=== PATIENT | male | born 1955 | race Asian ===

== ENCOUNTER 2023-07-29 15:39 | Inpatient (IN) | payer MEDICARE, OTHER ==
[~2023-07-29] VITALS: Ht 165.1 cm; Wt 70.8 kg
[2023-07-29 16:08] LABS: BASOPHILS # (AUTO) 0.1 K/UL (0.0-0.2); BASOPHILS % (AUTO) 0.8 % (0.0-2.0); EOSINOPHILS # (AUTO) 0.2 K/uL (0.0-0.7); EOSINOPHILS % (AUTO) 2.9 % (0.0-7.0); HEMATOCRIT 40.8 % (36.7-47.1); HEMOGLOBIN 13.7 g/dL (12.5-16.3); LYMPHOCYTES # (AUTO) 2.4 K/uL (0.8-4.8); LYMPHOCYTES % (AUTO) 34.2 % (20.5-51.5); MEAN CORPUSCULAR HEMOGLOBIN 30.9 uug (23.8-33.4); MEAN CORPUSCULAR HGB CONC 34 g/dL (32.5-36.3); MEAN CORPUSCULAR VOLUME 91.9 fL (73.0-96.2); MONOCYTES # (AUTO) 0.8 K/uL (0.1-1.30); MONOCYTES % (AUTO) 10.7 % (0.0-11.0); NEUTROPHILS # (AUTO) 3.6 K/uL (1.8-8.9); NEUTROPHILS % (AUTO) 51.4 % (38.5-71.5); PLATELET COUNT (AUTO) 214 K/uL (152-348); RED BLOOD CELL COUNT(AUTO) 4.44 MIL/uL (4.06-5.63); RED CELL DISTRIBUTION WIDTH 13.6 % (12.1-16.2); WHITE BLOOD COUNT (AUTO) 7.1 K/uL (3.6-10.2)
[2023-07-29 16:13] LABS: DIFFERENTIAL COMMENT 1
[2023-07-29 16:25] LABS: ETHANOL < 3 MG/DL (0-10)
[2023-07-29 16:26] LABS: CALCIUM 8.3 mg/dL (8.5-10.1); CARBON DIOXIDE 30 mmol/L (21-32); CHLORIDE 105 mmol/L (98-107); CREATININE 1.1 mg/dL (0.6-1.3); GLUCOSE 115 mg/dL (74-106); POTASSIUM 4.2 mmol/L (3.5-5.1); SODIUM SERUM 142 mmol/L (136-145); UREA NITROGEN, BLOOD 22 mg/dL (7-18)
[2023-07-29] MEDS ORDERED: BISA10SU61 RC (16:28)
[2023-07-29] MEDS ORDERED: ESCI5TAB PO (16:28)
[2023-07-29] MEDS ORDERED: ACET325T53 PO (16:28)
[2023-07-29 16:32] LABS: ALANINE AMINOTRANSFERASE 37 U/L (16-63); ALBUMIN 3.4 g/dL (3.4-5.0); ALKALINE PHOSPHATASE 84 U/L (50-136); ASPARTATE AMINOTRANSFERASE 22 U/L (15-37); BILIRUBIN,TOTAL 0.3 mg/dL (0.2-1.0); LIPASE 158 U/L (73-393)
[2023-07-29] MEDS ORDERED: LORAZEPAM 2 MG/1 ML VIAL ONE (16:42)
[2023-07-29] MEDS ORDERED: OLANZAPINE 10 MG VIAL IM ONE ×2 (16:43→16:45)
[2023-07-29] MEDS ORDERED: LORAZEPAM 2 MG/1 ML VIAL IM ONE (16:45)
[2023-07-29 16:50] LABS: ACETAMINOPHEN < 10.0 ug/mL (10-30)
[2023-07-29 16:53] LABS: *BILIRUBIN,URIN NEGATIVE (NEGATIVE); *BLOOD, URINE NEGATIVE (NEGATIVE); *CLARITY,URINE CLEAR (CLEAR); *COLOR,URINE YELLOW (YELLOW); *KETONES,URINE NEGATIVE (NEGATIVE); *PROTEIN,URINE NEGATIVE (NEGATIVE); *UROBILINOGEN,URINE 0.2 E.U./dl (NORMAL); LEUKOCYTE ESTERASE ,URINE NEGATIVE (NEGATIVE); NITRITE, URINE NEGATIVE (NEGATIVE); UGLUCOSE NEGATIVE (NEGATIVE)
[2023-07-29 16:58] LABS: *AMPHETAMINE, URINE NEGATIVE (NEGATIVE); *BARBITURATE, URINE NEGATIVE (NEGATIVE); *BENZODIAZEPINE, URINE NEGATIVE (NEGATIVE); *CANNABINOID, URINE NEGATIVE (NEGATIVE); *COCCAINE, URINE NEGATIVE (NEGATIVE); *OPIATE, URINE NEGATIVE (NEGATIVE); *PHENCYCLIDINE SCREEN,URINE NEGATIVE (NEGATIVE); FENTANYL, URINE NEGATIVE (NEGATIVE)
[2023-07-29 17:30] VITALS: BP 109/58; TEMP 97.9; O2SAT 97
[2023-07-29] MEDS ORDERED: MAGNESIUM HYDROXIDE 30 ML LIQUID UDC PO PRN (18:00)
[2023-07-29] MEDS ORDERED: MAG HYDROX/AL HYDROX/SIMETH 30 ML LIQUID UDC PO PRN (18:00)
[2023-07-29] MEDS ORDERED: BLOOD SUGAR DIAGNOSTIC 1 EACH STRIP VI ONE (18:00)
[2023-07-29] MEDS ORDERED: ACETAMINOPHEN 325 MG TABLET PO PRN (18:00)
[2023-07-29 20:00] VITALS: BP 105/72; TEMP 98; O2SAT 94
[2023-07-29] MEDS: CLONAZEPAM 0.5 MG TABLET PO PRN (20:52)
[2023-07-30 07:47] LABS: BASOPHILS % (AUTO) 0.5 % (0.0-2.0); EOSINOPHILS # (AUTO) 0.1 K/uL (0.0-0.7); EOSINOPHILS % (AUTO) 1.2 % (0.0-7.0); HEMATOCRIT 43.5 % (36.7-47.1); HEMOGLOBIN 14.6 g/dL (12.5-16.3); LYMPHOCYTES # (AUTO) 1.6 K/uL (0.8-4.8); MEAN CORPUSCULAR HGB CONC 34 g/dL (32.5-36.3); MEAN CORPUSCULAR VOLUME 92.5 fL (73.0-96.2); MONOCYTES # (AUTO) 0.7 K/uL (0.1-1.30); MONOCYTES % (AUTO) 8.3 % (0.0-11.0); NEUTROPHILS # (AUTO) 5.8 K/uL (1.8-8.9); PLATELET COUNT (AUTO) 219 K/uL (152-348); WHITE BLOOD COUNT (AUTO) 8.2 K/uL (3.6-10.2)
[2023-07-30 07:50] LABS: DIFFERENTIAL COMMENT 1
[2023-07-30 07:55] LABS: CALCIUM 8.3 mg/dL (8.5-10.1); POTASSIUM 4.2 mmol/L (3.5-5.1)
[2023-07-30 07:58] VITALS: BP 128/89; TEMP 98.4; O2SAT 98
[2023-07-30] MEDS: DIVALPROEX SPRINKLE 125 MG CAP.SPRINK PO SCH ×3 (09:30→20:25)
[2023-07-30] MEDS: QUETIAPINE FUMARATE 25 MG TABLET PO SCH ×3 (09:30→20:25)
[2023-07-30] MEDS: ESCITALOPRAM OXALATE 10 MG TABLET PO SCH ×2 (09:30→13:25)
[2023-07-30 16:34] VITALS: BP 107/75; TEMP 98; O2SAT 98
[2023-07-30] MEDS: CLONAZEPAM 0.5 MG TABLET PO PRN (17:11)
[2023-07-30 20:00] VITALS: BP 118/78; TEMP 97.5; O2SAT 97
[2023-07-30] MEDS: TEMAZEPAM 7.5 MG CAPSULE PO PRN (21:48)
[2023-07-31 08:17] VITALS: BP 154/77; TEMP 98; O2SAT 98
[2023-07-31] MEDS: QUETIAPINE FUMARATE 25 MG TABLET PO SCH ×2 (08:36→20:07)
[2023-07-31] MEDS: ESCITALOPRAM OXALATE 10 MG TABLET PO SCH (08:37)
[2023-07-31] MEDS: DIVALPROEX SPRINKLE 125 MG CAP.SPRINK PO SCH ×2 (08:37→20:07)
[2023-07-31] MEDS: CLONAZEPAM 0.5 MG TABLET PO PRN (15:40)
[2023-07-31 16:08] VITALS: BP 136/70; TEMP 98; O2SAT 98
[2023-07-31 20:00] VITALS: BP 117/77; TEMP 98.2; O2SAT 95
[2023-08-01] MEDS: DIVALPROEX SPRINKLE 125 MG CAP.SPRINK PO SCH ×2 (08:23→20:19)
[2023-08-01] MEDS: CLONAZEPAM 0.5 MG TABLET PO PRN ×3 (08:23→16:35)
[2023-08-01] MEDS: ESCITALOPRAM OXALATE 10 MG TABLET PO SCH (08:24)
[2023-08-01] MEDS: QUETIAPINE FUMARATE 25 MG TABLET PO SCH ×2 (08:24→20:19)
[2023-08-01] MEDS ORDERED: diphenhydrAMINE 50 MG/1 ML VIAL IM ONE (17:00)
[2023-08-01] MEDS ORDERED: HALOPERIDOL LACTATE 5 MG/1 ML VIAL IM ONE (17:00)
[2023-08-01] MEDS: METFORMIN HCL 500 MG TABLET PO SCH (17:30)
[2023-08-01 20:00] VITALS: BP 124/75; TEMP 98.1; O2SAT 99
[2023-08-01] MEDS: TEMAZEPAM 7.5 MG CAPSULE PO PRN (22:03)
[2023-08-02 07:54] VITALS: BP 117/81; TEMP 98; O2SAT 98
[2023-08-02] MEDS: METFORMIN HCL 500 MG TABLET PO SCH ×3 (08:00→17:47)
[2023-08-02] MEDS: QUETIAPINE FUMARATE 25 MG TABLET PO SCH ×3 (08:08→21:16)
[2023-08-02] MEDS: DIVALPROEX SPRINKLE 125 MG CAP.SPRINK PO SCH ×3 (08:08→21:15)
[2023-08-02] MEDS: ESCITALOPRAM OXALATE 10 MG TABLET PO SCH ×2 (08:08→09:00)
[2023-08-02] MEDS: CLONAZEPAM 0.5 MG TABLET PO PRN ×2 (14:17→18:55)
[2023-08-02 15:35] VITALS: BP 122/81; TEMP 98; O2SAT 98
[2023-08-02] MEDS: GLUCERNA SHAKE 237 ML CAN PO SCH (17:35)
[2023-08-02 20:00] VITALS: BP 136/73; TEMP 98.1; O2SAT 96
[2023-08-03 07:52] VITALS: BP 120/79; TEMP 98; O2SAT 99
[2023-08-03] MEDS: METFORMIN HCL 500 MG TABLET PO SCH ×2 (08:18→18:00)
[2023-08-03] MEDS: DIVALPROEX SPRINKLE 125 MG CAP.SPRINK PO SCH ×2 (08:18→20:06)
[2023-08-03] MEDS: QUETIAPINE FUMARATE 25 MG TABLET PO SCH ×2 (08:18→20:06)
[2023-08-03] MEDS: ESCITALOPRAM OXALATE 10 MG TABLET PO SCH (08:18)
[2023-08-03] MEDS: GLUCERNA SHAKE 237 ML CAN PO SCH ×2 (08:27→17:00)
[2023-08-03] MEDS: CLONAZEPAM 0.5 MG TABLET PO PRN ×2 (09:59→15:31)
[2023-08-03] MEDS ORDERED: diphenhydrAMINE 50 MG/1 ML VIAL IM STA (10:33)
[2023-08-03] MEDS ORDERED: HALOPERIDOL LACTATE 5 MG/1 ML VIAL IM STA (10:33)
[2023-08-03 15:26] VITALS: BP 108/74; TEMP 98; O2SAT 96
[2023-08-03 19:52] VITALS: BP 126/76; TEMP 98; O2SAT 98
[2023-08-04] MEDS: TEMAZEPAM 7.5 MG CAPSULE PO PRN ×2 (00:21→22:06)
[2023-08-04 08:10] VITALS: BP 136/68; TEMP 98.2; O2SAT 99
[2023-08-04] MEDS: ESCITALOPRAM OXALATE 10 MG TABLET PO SCH (09:40)
[2023-08-04] MEDS: GLUCERNA SHAKE 237 ML CAN PO SCH ×2 (09:40→16:54)
[2023-08-04] MEDS: DIVALPROEX SPRINKLE 125 MG CAP.SPRINK PO SCH ×2 (09:40→16:10)
[2023-08-04] MEDS: QUETIAPINE FUMARATE 25 MG TABLET PO SCH ×2 (09:40→20:01)
[2023-08-04] MEDS: METFORMIN HCL 500 MG TABLET PO SCH ×2 (09:40→17:11)
[2023-08-04] MEDS ORDERED: diphenhydrAMINE 50 MG/1 ML VIAL IM ONE (12:00)
[2023-08-04] MEDS ORDERED: HALOPERIDOL LACTATE 5 MG/1 ML VIAL IM ONE (12:00)
[2023-08-04 16:04] VITALS: BP 109/72; TEMP 98; O2SAT 96
[2023-08-04] MEDS: CLONAZEPAM 0.5 MG TABLET PO PRN (17:11)
[2023-08-04 19:53] VITALS: BP 106/73; TEMP 98.1; O2SAT 94
[2023-08-05 07:30] VITALS: BP 138/69; TEMP 97.8; O2SAT 98
[2023-08-05] MEDS: METFORMIN HCL 500 MG TABLET PO SCH ×2 (08:23→17:32)
[2023-08-05] MEDS: ESCITALOPRAM OXALATE 10 MG TABLET PO SCH (08:23)
[2023-08-05] MEDS: GLUCERNA SHAKE 237 ML CAN PO SCH ×2 (08:24→17:33)
[2023-08-05] MEDS: DIVALPROEX SPRINKLE 125 MG CAP.SPRINK PO SCH ×3 (08:24→17:33)
[2023-08-05] MEDS: QUETIAPINE FUMARATE 25 MG TABLET PO SCH (08:24)
[2023-08-05] MEDS ORDERED: chlorproMAZINE 50 MG/2 ML AMPUL IM ONE (10:00)
[2023-08-05 16:05] VITALS: BP 100/67; TEMP 98; O2SAT 98
[2023-08-05] MEDS: OLANZAPINE ZYDIS 5 MG TAB.RAPDIS PO SCH (17:33)
[2023-08-05 20:07] VITALS: BP 108/74; TEMP 98.7
[2023-08-05] MEDS: TEMAZEPAM 7.5 MG CAPSULE PO PRN (21:11)
[2023-08-05] MEDS: CLONAZEPAM 0.5 MG TABLET PO PRN (22:32)
[2023-08-06] MEDS: OLANZAPINE ZYDIS 5 MG TAB.RAPDIS PO SCH ×2 (08:48→16:46)
[2023-08-06] MEDS: ESCITALOPRAM OXALATE 10 MG TABLET PO SCH (08:48)
[2023-08-06] MEDS: DIVALPROEX SPRINKLE 125 MG CAP.SPRINK PO SCH ×2 (08:48→16:46)
[2023-08-06] MEDS: METFORMIN HCL 500 MG TABLET PO SCH ×2 (08:48→17:10)
[2023-08-06] MEDS: GLUCERNA SHAKE 237 ML CAN PO SCH ×2 (08:49→16:47)
[2023-08-06] MEDS: CLONAZEPAM 0.5 MG TABLET PO PRN ×2 (15:50→20:06)
[2023-08-06 16:24] VITALS: BP 128/76; TEMP 98; O2SAT 97
[2023-08-06 20:00] VITALS: BP 109/65; TEMP 97.9; O2SAT 96
[2023-08-06] MEDS: TEMAZEPAM 7.5 MG CAPSULE PO PRN (21:45)
[2023-08-07] MEDS: ESCITALOPRAM OXALATE 10 MG TABLET PO SCH (08:26)
[2023-08-07] MEDS: OLANZAPINE ZYDIS 5 MG TAB.RAPDIS PO SCH ×2 (08:26→16:18)
[2023-08-07] MEDS: METFORMIN HCL 500 MG TABLET PO SCH ×2 (08:26→18:00)
[2023-08-07] MEDS: GLUCERNA SHAKE 237 ML CAN PO SCH ×2 (08:27→16:18)
[2023-08-07] MEDS: DIVALPROEX SPRINKLE 125 MG CAP.SPRINK PO SCH ×2 (08:27→16:18)
[2023-08-07 16:16] VITALS: BP 103/64; TEMP 98; O2SAT 97
[2023-08-07] MEDS: CLONAZEPAM 0.5 MG TABLET PO PRN ×2 (19:32→23:32)
[2023-08-07 20:03] VITALS: BP 111/60; TEMP 98.2; O2SAT 96
[2023-08-07] MEDS: TEMAZEPAM 7.5 MG CAPSULE PO PRN (21:21)
[2023-08-08 08:00] VITALS: BP 111/71; TEMP 98; O2SAT 98
[2023-08-08] MEDS: DIVALPROEX SPRINKLE 125 MG CAP.SPRINK PO SCH ×2 (08:36→16:51)
[2023-08-08] MEDS: METFORMIN HCL 500 MG TABLET PO SCH ×2 (08:36→16:51)
[2023-08-08] MEDS: OLANZAPINE ZYDIS 5 MG TAB.RAPDIS PO SCH ×2 (08:36→16:51)
[2023-08-08] MEDS: ESCITALOPRAM OXALATE 10 MG TABLET PO SCH (08:36)
[2023-08-08] MEDS: GLUCERNA SHAKE 237 ML CAN PO SCH ×2 (08:37→16:52)
[2023-08-08 16:22] VITALS: BP 122/75; TEMP 98; O2SAT 98
[2023-08-08 20:00] VITALS: BP 120/80; TEMP 98; O2SAT 98
[2023-08-08] MEDS: TEMAZEPAM 7.5 MG CAPSULE PO PRN (20:23)
[2023-08-08] MEDS: CLONAZEPAM 0.5 MG TABLET PO PRN (22:17)
[2023-08-09] MEDS: CLONAZEPAM 0.5 MG TABLET PO PRN ×3 (05:01→23:41)
[2023-08-09] MEDS: METFORMIN HCL 500 MG TABLET PO SCH ×2 (08:00→17:22)
[2023-08-09 08:29] VITALS: BP 117/71; TEMP 98; O2SAT 98
[2023-08-09] MEDS: OLANZAPINE ZYDIS 5 MG TAB.RAPDIS PO SCH ×3 (09:05→16:27)
[2023-08-09] MEDS: ESCITALOPRAM OXALATE 10 MG TABLET PO SCH (09:06)
[2023-08-09] MEDS: DIVALPROEX SPRINKLE 125 MG CAP.SPRINK PO SCH ×2 (09:06→16:27)
[2023-08-09] MEDS: GLUCERNA SHAKE 237 ML CAN PO SCH ×2 (09:09→16:05)
[2023-08-09 15:12] VITALS: BP 110/65; TEMP 98; O2SAT 96
[2023-08-09 20:00] VITALS: BP 107/74; TEMP 98; O2SAT 97
[2023-08-09] MEDS: TEMAZEPAM 7.5 MG CAPSULE PO PRN (20:01)
[2023-08-10] MEDS: DIVALPROEX SPRINKLE 125 MG CAP.SPRINK PO SCH ×2 (08:30→16:33)
[2023-08-10] MEDS: OLANZAPINE ZYDIS 5 MG TAB.RAPDIS PO SCH ×2 (08:31→16:34)
[2023-08-10] MEDS: GLUCERNA SHAKE 237 ML CAN PO SCH (08:31)
[2023-08-10] MEDS: ESCITALOPRAM OXALATE 10 MG TABLET PO SCH (08:31)
[2023-08-10] MEDS: METFORMIN HCL 500 MG TABLET PO SCH ×2 (08:31→18:00)
[2023-08-10 08:40] VITALS: BP 132/61; TEMP 98.2; O2SAT 98
[2023-08-10 15:36] VITALS: BP 112/65; TEMP 98; O2SAT 98
[2023-08-10] MEDS: CLONAZEPAM 0.5 MG TABLET PO PRN (19:44)
[2023-08-10 20:00] VITALS: BP 101/68; TEMP 97.8; O2SAT 96
[2023-08-10] MEDS ORDERED: OLANZAPINE ZYDIS 5 MG TAB.RAPDIS PO SCH (21:00)
[2023-08-10] MEDS: TEMAZEPAM 7.5 MG CAPSULE PO PRN (21:24)
[2023-08-11] MEDS: CLONAZEPAM 0.5 MG TABLET PO PRN ×2 (03:24→14:17)
[2023-08-11 07:30] VITALS: BP 118/62; TEMP 98; O2SAT 96
[2023-08-11] MEDS: GLUCERNA SHAKE 237 ML CAN PO SCH (09:00)
[2023-08-11] MEDS: DIVALPROEX SPRINKLE 125 MG CAP.SPRINK PO SCH (10:09)
[2023-08-11] MEDS: OLANZAPINE ZYDIS 5 MG TAB.RAPDIS PO SCH (10:09)
[2023-08-11] MEDS: ESCITALOPRAM OXALATE 10 MG TABLET PO SCH (10:09)
[2023-08-11] MEDS: METFORMIN HCL 500 MG TABLET PO SCH (10:09)
[2023-08-11 15:08] VITALS: BP 121/56; TEMP 98; O2SAT 98
== END 2023-08-11 16:00 | DRG 885 ==
LOC: ER 15:39 → GPS 17:27
PROVIDERS: ADMIT Psychiatry & Neurology Psychiatry; ATTEND Internal Medicine
DX: F29 Unspecified psychosis not due to a substance or known physiological condition (principal); G93.41 Metabolic encephalopathy; F02.818 Dementia in other diseases classified elsewhere, unspecified severity, with other behavioral disturbance; F02.83 Dementia in other diseases classified elsewhere, unspecified severity, with mood disturbance; F02.82 Dementia in other diseases classified elsewhere, unspecified severity, with psychotic disturbance; E44.1 Mild protein-calorie malnutrition; G30.9 Alzheimer's disease, unspecified; E11.9 Type 2 diabetes mellitus without complications; G47.00 Insomnia, unspecified; Z86.16 Personal history of COVID-19; Z20.822 Contact with and (suspected) exposure to COVID-19; F39 Unspecified mood [affective] disorder; M19.90 Unspecified osteoarthritis, unspecified site; R53.1 Weakness; F32.A Depression, unspecified; Z73.6 Limitation of activities due to disability; Z79.84 Long term (current) use of oral hypoglycemic drugs; Z79.899 Other long term (current) drug therapy; Z91.199 Patient's noncompliance with other medical treatment and regimen due to unspecified reason; I51.7 Cardiomegaly; Z68.26 Body mass index [BMI] 26.0-26.9, adult
CPT/HCPCS: 36415; 80164; 83690; 85025; 93005; G0480; J1200; J1630; J2060; J2358; J3230